=== PATIENT | male | born 1945 | race Caucasian/White ===

== ENCOUNTER 2016-09-03 20:53 | Inpatient (IN) | payer BC, MEDICARE ==
[~2016-09-03] VITALS: Ht 170.2 cm; Wt 47.5 kg
[2016-09-03] MEDS: DOXYCYCLINE 100 MG in DEXTROSE 5% 250 ML IV SCH (00:30)
[2016-09-03] MEDS: CEFTRIAXONE PMX 1GM/50ML 50 ML IV SCH (06:00)
[~2016-09-03 20:53] MED LIST: ALBU0.63 NEB; ALPR0.254 PO; AMIO200T42 PO; CALC200T3 PO; ENOX30DI3 SQ; FAMO20TA37 PO; GI COCKTAIL PO; HYDR-3138 PO; IPRA3AMP INLINE; MAG355OR14 PO; NICO1PAT4 TD; NYST1000 PO; PANT40TA5 PO; PRED20TA PO; PRED5POW3 PO; TAMS-11 PO; THEO100C PO; WARF5TAB PO
[2016-09-03] MEDS ORDERED: methylPREDNISolone SOD SUCC 125 MG/2 ML ONE (21:15)
[2016-09-03 21:29] LABS: BLOOD UREA NITROGEN 19 mg/dL (7-18)
[2016-09-03] MEDS ORDERED: MAGNESIUM SULFATE PMX 2GM/50ML 50 ML IV ONE (21:30)
[2016-09-03] MEDS ORDERED: methylPREDNISolone SOD SUCC 125 MG/2 ML IVP ONE (21:30)
[2016-09-03] MEDS ORDERED: SODIUM CHLORIDE 0.9% 1,000ML IVBOLUS ONE (21:30)
[2016-09-03] MEDS ORDERED: ALBUTEROL/IPRATROPIUM 2.5MG/0.5MG, 3 ML NEB ONE (21:30)
[2016-09-03] MEDS ORDERED: PLEASE ENTER HEIGHT AND WEIGHT MC SCH (21:30)
[2016-09-03] MEDS ORDERED: SODIUM CHLORIDE FLUSH 10ML SYR IVF ONE (21:30)
[2016-09-03 21:38] LABS: IS PT STATUS REG ER OR PRE ER? YES
[2016-09-03] MEDS ORDERED: ALBU8.5H3 INH (21:44)
[2016-09-03] MEDS ORDERED: BUSP10TA PO (21:44)
[2016-09-03] MEDS ORDERED: ALBU1.25 NEB (21:44)
[2016-09-03] MEDS ORDERED: IPRA0.2S35 INH (21:44)
[2016-09-03] MEDS ORDERED: DABI150C PO (21:44)
[2016-09-03] MEDS ORDERED: ALBUTEROL SULFATE 2.5 MG/3 ML NPPB ONE (22:00)
[2016-09-03 22:09] LABS: ABG COLLECTION SITE RIGHT RADIAL; COLLATERAL CIRCULATION TESTING NORMAL
[2016-09-03] MEDS ORDERED: LORazepam 2 MG/ML, 1ML ONE (22:10)
[2016-09-03] MEDS ORDERED: LORazepam 2 MG/ML, 1ML IVPush ONE (22:30)
[2016-09-03] MEDS ORDERED: SODIUM CHLORIDE 0.9% 1,000 ML IV ONE (23:00)
[2016-09-03] MEDS ORDERED: ENOXAPARIN 40 MG/0.4 ML SQ SCH (23:30)
[2016-09-03] MEDS ORDERED: BISACODYL 10 MG SUPP PR PRN (23:30)
[2016-09-03] MEDS ORDERED: LORazepam 2 MG/ML, 1ML IVPush PRN (23:30)
[2016-09-03] MEDS ORDERED: ONDANSETRON 2MG/ML, 2ML IVPush PRN (23:30)
[2016-09-03] MEDS ORDERED: POLYETHYLENE GLYCOL 17 GM PACKET PO PRN (23:30)
[2016-09-03] MEDS ORDERED: GUAIFENESIN/DM 200-20MG, 10ML UDC PO PRN (23:30)
[2016-09-03] MEDS ORDERED: DOCUSATE 100 MG CAPSULE PO PRN (23:30)
[2016-09-04] VITALS: BP 116/64
[2016-09-04 02:13] VITALS: BP 129/59
[2016-09-04 02:34] LABS: ABG COLLECTION SITE LEFT RADIAL; COLLATERAL CIRCULATION TESTING NORMAL
[2016-09-04] MEDS: DABIGATRAN 150 MG CAPSULE PO SCH ×3 (03:11→20:30)
[2016-09-04] MEDS: NICOTINE 7 MG/24 HR PATCH.TD24 TD SCH ×2 (03:12→22:00)
[2016-09-04] MEDS: methylPREDNISolone SOD SUCC 125 MG/2 ML IVPush SCH ×4 (03:19→20:30)
[2016-09-04 05:24] LABS: ABG COLLECTION SITE RIGHT RADIAL; COLLATERAL CIRCULATION TESTING NORMAL
[2016-09-04 05:53] LABS: ASPARTATE AMINO TRANSFERASE 30 U/L (15-37); BLOOD UREA NITROGEN 15 mg/dL (7-18); TOTAL IRON BINDING CAPACITY 597 mcg/dL (250-450)
[2016-09-04] MEDS ORDERED: ALBUTEROL/IPRATROPIUM 2.5MG/0.5MG, 3 ML NPPB SCH (07:00)
[2016-09-04 08:18] VITALS: BP 124/64
[2016-09-04] MEDS: FLUTICASONE/VILANTEROL 200-25MCG/INH INH SCH (09:00)
[2016-09-04] MEDS: SODIUM CHLORIDE FLUSH 3ML SYRINGE IVF SCH ×2 (09:00→20:30)
[2016-09-04] MEDS: BUSPIRONE 10 MG TABLET PO SCH ×3 (10:35→20:30)
[2016-09-04] MEDS: morphine SULFATE 10 MG/ML, 1ML IVPush PRN (10:40)
[2016-09-04 11:04] LABS: IS PT STATUS REG ER OR PRE ER? NO
[2016-09-04] MEDS: ALBUTEROL/IPRATROPIUM 2.5MG/0.5MG, 3 ML NPPB SCH ×4 (11:20→23:28)
[2016-09-04 11:50] VITALS: BP 102/57
[2016-09-04] MEDS: DOXYCYCLINE 100 MG in DEXTROSE 5% 250 ML IV SCH (13:13)
[2016-09-04] MEDS: SODIUM CHLORIDE 0.9% 1,000 ML IV SCH (15:36)
[2016-09-04] MEDS: CEFTRIAXONE PMX 1GM/50ML 50 ML IV SCH (23:16)
[2016-09-05] MEDS: DOXYCYCLINE 100 MG in DEXTROSE 5% 250 ML IV SCH ×2 (00:05→13:43)
[2016-09-05] MEDS: ALBUTEROL/IPRATROPIUM 2.5MG/0.5MG, 3 ML NPPB SCH ×6 (02:56→23:52)
[2016-09-05] MEDS: methylPREDNISolone SOD SUCC 125 MG/2 ML IVPush SCH ×4 (02:57→21:22)
[2016-09-05] MEDS: SODIUM CHLORIDE 0.9% 1,000 ML IV SCH ×2 (02:57→11:26)
[2016-09-05 04:00] VITALS: BP 110/62
[2016-09-05 04:25] LABS: BLOOD UREA NITROGEN 18 mg/dL (7-18)
[2016-09-05 07:47] LABS: ABG COLLECTION SITE RIGHT RADIAL
[2016-09-05 07:48] LABS: COLLATERAL CIRCULATION TESTING NORMAL
[2016-09-05] MEDS: FLUTICASONE/VILANTEROL 200-25MCG/INH INH SCH (09:00)
[2016-09-05] MEDS: SODIUM CHLORIDE FLUSH 3ML SYRINGE IVF SCH ×2 (09:00→21:35)
[2016-09-05] MEDS: DABIGATRAN 150 MG CAPSULE PO SCH ×2 (11:25→20:38)
[2016-09-05] MEDS: BUSPIRONE 10 MG TABLET PO SCH ×3 (11:25→20:36)
[2016-09-05] MEDS: NICOTINE 7 MG/24 HR PATCH.TD24 TD SCH (23:00)
[2016-09-05] MEDS: CEFTRIAXONE PMX 1GM/50ML 50 ML IV SCH (23:00)
[2016-09-06] MEDS: DOXYCYCLINE 100 MG in DEXTROSE 5% 250 ML IV SCH ×2 (00:20→10:48)
[2016-09-06] MEDS: SODIUM CHLORIDE 0.9% 1,000 ML IV SCH ×2 (02:53→17:36)
[2016-09-06] MEDS: methylPREDNISolone SOD SUCC 125 MG/2 ML IVPush SCH ×4 (03:46→22:24)
[2016-09-06 04:00] VITALS: BP 124/70
[2016-09-06 04:36] LABS: BLOOD UREA NITROGEN 25 mg/dL (7-18)
[2016-09-06 04:39] LABS: ASPARTATE AMINO TRANSFERASE 22 U/L (15-37)
[2016-09-06] MEDS: morphine SULFATE 10 MG/ML, 1ML IVPush PRN ×2 (05:54→06:39)
[2016-09-06] MEDS: ALBUTEROL/IPRATROPIUM 2.5MG/0.5MG, 3 ML NPPB SCH ×3 (06:40→18:40)
[2016-09-06] MEDS: BUSPIRONE 10 MG TABLET PO SCH ×3 (08:04→22:24)
[2016-09-06] MEDS: DABIGATRAN 150 MG CAPSULE PO SCH ×2 (08:04→21:00)
[2016-09-06] MEDS: SODIUM CHLORIDE FLUSH 3ML SYRINGE IVF SCH ×2 (08:05→22:24)
[2016-09-06] MEDS ORDERED: MIDAZOLAM 1 MG/ML, 5ML ONE (09:00)
[2016-09-06] MEDS: FLUTICASONE/VILANTEROL 200-25MCG/INH INH SCH (09:00)
[2016-09-06] MEDS ORDERED: ETOMIDATE 20 MG/10 ML ONE (09:00)
[2016-09-06] MEDS ORDERED: MIDAZOLAM 1 MG/ML, 5ML IVPush ONE (09:30)
[2016-09-06] MEDS ORDERED: ETOMIDATE 20 MG/10 ML IVPush ONE ×2 (09:30→10:00)
[2016-09-06] MEDS ORDERED: MIDAZOLAM 1 MG/ML, 2ML IVPush PRN (10:00)
[2016-09-06] MEDS ORDERED: FENTANYL PF 100 MCG/2ML IVPush PRN (10:00)
[2016-09-06] MEDS ORDERED: DEXTROSE 50%, 50ML SYRINGE IVPush PRN (10:00)
[2016-09-06] MEDS ORDERED: GLUCAGON 1 MG IM PRN (10:00)
[2016-09-06] MEDS ORDERED: PHARMACY MAY ADJ FOR RENAL FX MC SCH (10:00)
[2016-09-06] MEDS ORDERED: LIDOCAINE-MPF 1%, 2ML ENDO PRN (10:00)
[2016-09-06] MEDS: ALBUTEROL/IPRATROPIUM 2.5MG/0.5MG, 3 ML INLINE SCH ×4 (10:14→22:10)
[2016-09-06] MEDS: PROPOFOL 100 ML IV PRN ×2 (10:47→23:30)
[2016-09-06 11:30] LABS: ABG COLLECTION SITE RIGHT RADIAL; COLLATERAL CIRCULATION TESTING NORMAL
[2016-09-06] MEDS: RISPERIDONE 1 MG TABLET NG PRN (15:24)
[2016-09-06] MEDS: NICOTINE 7 MG/24 HR PATCH.TD24 TD SCH (23:23)
[2016-09-06] MEDS: CEFTRIAXONE PMX 1GM/50ML 50 ML IV SCH (23:23)
[2016-09-07] MEDS: DOXYCYCLINE 100 MG in DEXTROSE 5% 250 ML IV SCH ×3 (01:04→23:54)
[2016-09-07] MEDS: ALBUTEROL/IPRATROPIUM 2.5MG/0.5MG, 3 ML INLINE SCH ×6 (02:05→22:15)
[2016-09-07 04:00] VITALS: BP 140/75
[2016-09-07 04:29] LABS: ABG COLLECTION SITE RIGHT RADIAL; COLLATERAL CIRCULATION TESTING NORMAL
[2016-09-07 04:41] LABS: BLOOD UREA NITROGEN 28 mg/dL (7-18)
[2016-09-07] MEDS: methylPREDNISolone SOD SUCC 125 MG/2 ML IVPush SCH ×4 (04:43→21:56)
[2016-09-07] MEDS: HYDROcodone/APAP 5/325 TABLET PO PRN ×2 (04:47→19:43)
[2016-09-07] MEDS: FLUTICASONE/VILANTEROL 200-25MCG/INH INH SCH (09:00)
[2016-09-07] MEDS: DABIGATRAN 150 MG CAPSULE PO SCH ×2 (09:11→20:52)
[2016-09-07] MEDS: BUSPIRONE 10 MG TABLET PO SCH ×3 (09:12→21:00)
[2016-09-07] MEDS: SODIUM CHLORIDE FLUSH 3ML SYRINGE IVF SCH ×2 (09:12→21:00)
[2016-09-07] MEDS: SODIUM CHLORIDE 0.9% 1,000 ML IV SCH ×2 (09:16→23:09)
[2016-09-07] MEDS ORDERED: PHENOL THROAT SPRAY BOTTLE MM PRN (10:00)
[2016-09-07] MEDS: FAMOTIDINE 20 MG/2 ML IVPush SCH ×2 (10:21→21:00)
[2016-09-07] MEDS: ACETAMINOPHEN 325 MG TABLET PO PRN (14:15)
[2016-09-07] MEDS: RISPERIDONE 1 MG TABLET NG PRN (21:01)
[2016-09-07] MEDS: NICOTINE 7 MG/24 HR PATCH.TD24 TD SCH (23:09)
[2016-09-07] MEDS: CEFTRIAXONE PMX 1GM/50ML 50 ML IV SCH (23:09)
[2016-09-08] MEDS: ALBUTEROL/IPRATROPIUM 2.5MG/0.5MG, 3 ML INLINE SCH ×6 (01:50→22:20)
[2016-09-08] MEDS: methylPREDNISolone SOD SUCC 125 MG/2 ML IVPush SCH ×4 (03:43→21:25)
[2016-09-08 04:01] VITALS: BP 133/56
[2016-09-08 04:23] LABS: ABG COLLECTION SITE LEFT RADIAL; COLLATERAL CIRCULATION TESTING NORMAL
[2016-09-08 04:31] LABS: BLOOD UREA NITROGEN 25 mg/dL (7-18)
[2016-09-08] MEDS: DABIGATRAN 150 MG CAPSULE PO SCH ×2 (09:32→21:00)
[2016-09-08] MEDS: SODIUM CHLORIDE FLUSH 3ML SYRINGE IVF SCH ×2 (09:33→21:25)
[2016-09-08] MEDS: FAMOTIDINE 20 MG/2 ML IVPush SCH ×2 (09:33→21:25)
[2016-09-08] MEDS: BUSPIRONE 10 MG TABLET PO SCH ×3 (09:33→21:25)
[2016-09-08] MEDS: FLUTICASONE/VILANTEROL 200-25MCG/INH INH SCH (09:33)
[2016-09-08] MEDS: DOXYCYCLINE 100 MG in DEXTROSE 5% 250 ML IV SCH (12:17)
[2016-09-08] MEDS: PROPOFOL 100 ML IV PRN (15:47)
[2016-09-08] MEDS: FUROSEMIDE 20 MG/2 ML IV SCH (17:23)
[2016-09-08] MEDS: RISPERIDONE 1 MG TABLET NG PRN (21:25)
[2016-09-08] MEDS: SODIUM CHLORIDE 0.9% 1,000 ML IV SCH (21:26)
[2016-09-08] MEDS: HYDROcodone/APAP 5/325 TABLET PO PRN (21:32)
[2016-09-08] MEDS: CEFTRIAXONE PMX 1GM/50ML 50 ML IV SCH (23:12)
[2016-09-08] MEDS: NICOTINE 7 MG/24 HR PATCH.TD24 TD SCH (23:12)
[2016-09-09] VITALS (8 sets, daily range): BP systolic 91–133; BP diastolic 53–84
[2016-09-09] MEDS: DOXYCYCLINE 100 MG in DEXTROSE 5% 250 ML IV SCH ×2 (00:11→12:23)
[2016-09-09] MEDS: PROPOFOL 100 ML IV PRN (02:22)
[2016-09-09] MEDS: ALBUTEROL/IPRATROPIUM 2.5MG/0.5MG, 3 ML INLINE SCH ×6 (02:29→21:51)
[2016-09-09] MEDS: SODIUM CHLORIDE 0.9% 1,000 ML IV SCH (04:18)
[2016-09-09] MEDS: methylPREDNISolone SOD SUCC 125 MG/2 ML IVPush SCH ×4 (04:19→22:59)
[2016-09-09 04:41] LABS: ABG COLLECTION SITE RIGHT RADIAL; COLLATERAL CIRCULATION TESTING NORMAL
[2016-09-09 04:45] LABS: BLOOD UREA NITROGEN 22 mg/dL (7-18)
[2016-09-09] MEDS: FLUTICASONE/VILANTEROL 200-25MCG/INH INH SCH (08:50)
[2016-09-09] MEDS: SODIUM CHLORIDE FLUSH 3ML SYRINGE IVF SCH ×2 (09:00→21:13)
[2016-09-09] MEDS: FUROSEMIDE 20 MG/2 ML IV SCH ×2 (09:00→16:47)
[2016-09-09] MEDS: POTASSIUM CHLORIDE 20 MEQ PACKET NG SCH ×2 (09:01→21:12)
[2016-09-09] MEDS: FAMOTIDINE 20 MG/2 ML IVPush SCH ×2 (09:16→21:12)
[2016-09-09] MEDS: BUSPIRONE 10 MG TABLET PO SCH ×3 (09:16→21:12)
[2016-09-09] MEDS: HYDROcodone/APAP 5/325 TABLET PO PRN (21:12)
[2016-09-09] MEDS: CEFTRIAXONE PMX 1GM/50ML 50 ML IV SCH (22:59)
[2016-09-10] MEDS: NICOTINE 7 MG/24 HR PATCH.TD24 TD SCH ×2 (00:40→23:12)
[2016-09-10] MEDS: DOXYCYCLINE 100 MG in DEXTROSE 5% 250 ML IV SCH ×2 (00:41→12:44)
[2016-09-10] MEDS: ALBUTEROL/IPRATROPIUM 2.5MG/0.5MG, 3 ML INLINE SCH ×2 (02:12→06:00)
[2016-09-10 04:00] VITALS: BP 98/53
[2016-09-10 04:44] LABS: ABG COLLECTION SITE RIGHT RADIAL; COLLATERAL CIRCULATION TESTING NORMAL
[2016-09-10 04:52] LABS: ASPARTATE AMINO TRANSFERASE 28 U/L (15-37); BLOOD UREA NITROGEN 28 mg/dL (7-18)
[2016-09-10] MEDS: methylPREDNISolone SOD SUCC 125 MG/2 ML IVPush SCH ×4 (05:37→23:11)
[2016-09-10] MEDS: SODIUM CHLORIDE 0.9% 1,000 ML IV SCH (05:38)
[2016-09-10] MEDS ORDERED: MAGNESIUM SULFATE PMX 2GM/50ML 50 ML IV ONE (07:00)
[2016-09-10] MEDS: FAMOTIDINE 20 MG/2 ML IVPush SCH ×2 (07:47→20:59)
[2016-09-10] MEDS: POTASSIUM CHLORIDE 20 MEQ PACKET NG SCH ×2 (07:47→20:59)
[2016-09-10] MEDS: SODIUM CHLORIDE FLUSH 3ML SYRINGE IVF SCH ×2 (07:47→20:59)
[2016-09-10] MEDS: BUSPIRONE 10 MG TABLET PO SCH ×3 (07:47→20:59)
[2016-09-10] MEDS: FUROSEMIDE 20 MG/2 ML IV SCH ×2 (07:47→17:05)
[2016-09-10] MEDS: FLUTICASONE/VILANTEROL 200-25MCG/INH INH SCH (08:55)
[2016-09-10] MEDS: INSULIN ASPART 100 UNITS/ML, 3ML PEN MEDIUM DOSE SS SQ-INSULIN SCH ×3 (09:50→20:59)
[2016-09-10 09:51] LABS: ABG COLLECTION SITE RIGHT RADIAL; COLLATERAL CIRCULATION TESTING NORMAL
[2016-09-10] MEDS ORDERED: ALBUTEROL/IPRATROPIUM 2.5MG/0.5MG, 3 ML NPPB PRN (10:00)
[2016-09-10] MEDS: ALBUTEROL/IPRATROPIUM 2.5MG/0.5MG, 3 ML NPPB SCH ×4 (10:00→22:30)
[2016-09-10] MEDS: CEFTRIAXONE PMX 1GM/50ML 50 ML IV SCH (23:12)
[2016-09-11] MEDS: DOXYCYCLINE 100 MG in DEXTROSE 5% 250 ML IV SCH ×2 (00:46→12:57)
[2016-09-11] MEDS: ALBUTEROL/IPRATROPIUM 2.5MG/0.5MG, 3 ML NPPB SCH ×6 (01:49→22:11)
[2016-09-11 04:00] VITALS: BP 150/72
[2016-09-11 04:25] LABS: ABG COLLECTION SITE RIGHT RADIAL; COLLATERAL CIRCULATION TESTING NORMAL
[2016-09-11] MEDS: methylPREDNISolone SOD SUCC 125 MG/2 ML IVPush SCH ×4 (04:32→22:17)
[2016-09-11 04:36] LABS: BLOOD UREA NITROGEN 28 mg/dL (7-18)
[2016-09-11] MEDS: FUROSEMIDE 20 MG/2 ML IV SCH ×2 (07:36→16:05)
[2016-09-11] MEDS: INSULIN ASPART 100 UNITS/ML, PEN SQ-INSULIN SCH ×4 (07:36→20:38)
[2016-09-11] MEDS: POTASSIUM CHLORIDE 20 MEQ PACKET NG SCH ×2 (07:36→20:38)
[2016-09-11] MEDS: BUSPIRONE 10 MG TABLET PO SCH ×3 (07:37→20:38)
[2016-09-11] MEDS: SODIUM CHLORIDE FLUSH 3ML SYRINGE IVF SCH ×2 (07:37→20:38)
[2016-09-11] MEDS: FLUTICASONE/VILANTEROL 200-25MCG/INH INH SCH (07:37)
[2016-09-11] MEDS: FAMOTIDINE 20 MG/2 ML IVPush SCH ×2 (07:37→20:38)
[2016-09-11] MEDS: DABIGATRAN 150 MG CAPSULE PO SCH ×2 (09:22→20:38)
[2016-09-11] MEDS: HYDROcodone/APAP 5/325 TABLET PO PRN (20:38)
[2016-09-11] MEDS: CEFTRIAXONE 1,000 MG in SODIUM CHLORIDE 0.9% 50 ML IVPB SCH (23:20)
[2016-09-11] MEDS: NICOTINE 7 MG/24 HR PATCH.TD24 TD SCH (23:20)
[2016-09-11] MEDS ORDERED: TAMSULOSIN 0.4 MG CAP.ER.24H PO ONE (23:30)
[2016-09-12] MEDS: DOXYCYCLINE 100 MG in DEXTROSE 5% 250 ML IV SCH ×2 (00:40→12:33)
[2016-09-12] MEDS: ALBUTEROL/IPRATROPIUM 2.5MG/0.5MG, 3 ML NPPB SCH ×6 (02:03→22:06)
[2016-09-12 04:00] VITALS: BP 129/65
[2016-09-12] MEDS: methylPREDNISolone SOD SUCC 125 MG/2 ML IVPush SCH ×4 (04:04→20:51)
[2016-09-12 04:44] LABS: ABG COLLECTION SITE RIGHT RADIAL; COLLATERAL CIRCULATION TESTING NORMAL
[2016-09-12 06:58] LABS: BLOOD UREA NITROGEN 29 mg/dL (7-18)
[2016-09-12] MEDS: INSULIN ASPART 100 UNITS/ML, PEN SQ-INSULIN SCH ×4 (07:29→20:50)
[2016-09-12] MEDS: FUROSEMIDE 20 MG/2 ML IV SCH ×2 (08:04→17:20)
[2016-09-12] MEDS: PAROXETINE 20 MG TABLET PO SCH (09:10)
[2016-09-12] MEDS: BUSPIRONE 10 MG TABLET PO SCH ×3 (09:10→22:17)
[2016-09-12] MEDS: DABIGATRAN 150 MG CAPSULE PO SCH ×2 (09:11→20:51)
[2016-09-12] MEDS: CALCIUM CARBONATE 500 MG TAB.CHEW PO PRN (09:11)
[2016-09-12] MEDS: TAMSULOSIN 0.4 MG CAP.ER.24H PO SCH (09:11)
[2016-09-12] MEDS: FLUTICASONE/VILANTEROL 200-25MCG/INH INH SCH (09:11)
[2016-09-12] MEDS: POTASSIUM CHLORIDE 20 MEQ PACKET NG SCH ×2 (09:11→20:50)
[2016-09-12] MEDS: FAMOTIDINE 20 MG/2 ML IVPush SCH (09:11)
[2016-09-12] MEDS: SODIUM CHLORIDE FLUSH 3ML SYRINGE IVF SCH ×2 (09:12→20:47)
[2016-09-12] MEDS: FERROUS SULFATE 325 MG TABLET PO SCH ×2 (13:00→17:20)
[2016-09-12] MEDS ORDERED: MAALOX/HYOSCYAMINE/LIDOCAINE 45 ML BOTTLE PO ONE (16:30)
[2016-09-12] MEDS: OMEPRAZOLE 20 MG CAPSULE.DR PO SCH (20:50)
[2016-09-12] MEDS: morphine SULFATE 10 MG/ML, 1ML IVPush PRN (20:57)
[2016-09-12] MEDS: CEFTRIAXONE 1,000 MG in SODIUM CHLORIDE 0.9% 50 ML IVPB SCH (23:53)
[2016-09-12] MEDS: NICOTINE 7 MG/24 HR PATCH.TD24 TD SCH (23:56)
[2016-09-13] MEDS: DOXYCYCLINE 100 MG in DEXTROSE 5% 250 ML IV SCH ×2 (00:55→14:04)
[2016-09-13] MEDS: ALBUTEROL/IPRATROPIUM 2.5MG/0.5MG, 3 ML NPPB SCH ×6 (02:03→22:15)
[2016-09-13 03:32] LABS: BLOOD UREA NITROGEN 36 mg/dL (7-18)
[2016-09-13] MEDS: methylPREDNISolone SOD SUCC 125 MG/2 ML IVPush SCH ×4 (05:06→22:03)
[2016-09-13] MEDS: INSULIN ASPART 100 UNITS/ML, PEN SQ-INSULIN SCH ×4 (08:17→19:51)
[2016-09-13] MEDS: FUROSEMIDE 20 MG/2 ML IV SCH ×2 (08:18→18:57)
[2016-09-13] MEDS: POTASSIUM CHLORIDE 20 MEQ PACKET NG SCH ×2 (08:19→20:18)
[2016-09-13] MEDS: TAMSULOSIN 0.4 MG CAP.ER.24H PO SCH (08:19)
[2016-09-13] MEDS: PAROXETINE 20 MG TABLET PO SCH (08:19)
[2016-09-13] MEDS: FERROUS SULFATE 325 MG TABLET PO SCH ×2 (08:19→18:56)
[2016-09-13] MEDS: OMEPRAZOLE 20 MG CAPSULE.DR PO SCH ×2 (08:19→20:19)
[2016-09-13] MEDS: SODIUM CHLORIDE FLUSH 3ML SYRINGE IVF SCH ×2 (08:19→20:18)
[2016-09-13] MEDS: DABIGATRAN 150 MG CAPSULE PO SCH ×2 (08:19→20:18)
[2016-09-13] MEDS: BUSPIRONE 10 MG TABLET PO SCH ×3 (08:19→20:19)
[2016-09-13] MEDS: FLUTICASONE/VILANTEROL 200-25MCG/INH INH SCH (08:24)
[2016-09-13 11:20] VITALS: BP 138/66
[2016-09-13 20:01] VITALS: BP 136/80
[2016-09-13] MEDS: CALCIUM CARBONATE 500 MG TAB.CHEW PO PRN (22:02)
[2016-09-13] MEDS: NICOTINE 7 MG/24 HR PATCH.TD24 TD SCH (22:02)
[2016-09-13] MEDS: CEFTRIAXONE 1,000 MG in SODIUM CHLORIDE 0.9% 50 ML IVPB SCH (22:02)
[2016-09-14] MEDS: DOXYCYCLINE 100 MG in DEXTROSE 5% 250 ML IV SCH ×2 (00:21→11:49)
[2016-09-14 00:50] VITALS: BP 131/69
[2016-09-14] MEDS: ALBUTEROL/IPRATROPIUM 2.5MG/0.5MG, 3 ML NPPB SCH ×5 (02:00→22:55)
[2016-09-14] MEDS: methylPREDNISolone SOD SUCC 125 MG/2 ML IVPush SCH ×4 (04:05→21:19)
[2016-09-14 05:20] LABS: BLOOD UREA NITROGEN 32 mg/dL (7-18)
[2016-09-14] MEDS: CALCIUM CARBONATE 500 MG TAB.CHEW PO PRN ×2 (06:03→21:37)
[2016-09-14] MEDS: FUROSEMIDE 20 MG/2 ML IV SCH ×2 (07:31→17:09)
[2016-09-14] MEDS: INSULIN ASPART 100 UNITS/ML, PEN SQ-INSULIN SCH ×4 (07:36→21:20)
[2016-09-14] MEDS: FLUTICASONE/VILANTEROL 200-25MCG/INH INH SCH (07:39)
[2016-09-14] MEDS: TAMSULOSIN 0.4 MG CAP.ER.24H PO SCH (07:40)
[2016-09-14] MEDS: OMEPRAZOLE 20 MG CAPSULE.DR PO SCH ×2 (07:40→21:19)
[2016-09-14] MEDS: PAROXETINE 20 MG TABLET PO SCH (07:41)
[2016-09-14] MEDS: POTASSIUM CHLORIDE 20 MEQ PACKET NG SCH ×2 (07:41→21:19)
[2016-09-14] MEDS: BUSPIRONE 10 MG TABLET PO SCH ×3 (07:41→21:19)
[2016-09-14] MEDS: FERROUS SULFATE 325 MG TABLET PO SCH ×2 (07:41→17:08)
[2016-09-14] MEDS: SODIUM CHLORIDE FLUSH 3ML SYRINGE IVF SCH ×2 (07:46→21:26)
[2016-09-14 08:22] VITALS: BP 127/62
[2016-09-14] MEDS: DABIGATRAN 150 MG CAPSULE PO SCH ×2 (09:51→21:19)
[2016-09-14 20:49] VITALS: BP 147/64
[2016-09-14] MEDS ORDERED: TEMAZEPAM 15 MG CAPSULE PO PRN (21:30)
[2016-09-14] MEDS: CEFTRIAXONE 1,000 MG in SODIUM CHLORIDE 0.9% 50 ML IVPB SCH (23:30)
[2016-09-14] MEDS: NICOTINE 7 MG/24 HR PATCH.TD24 TD SCH (23:30)
[2016-09-15] MEDS: DOXYCYCLINE 100 MG in DEXTROSE 5% 250 ML IV SCH ×2 (00:13→13:25)
[2016-09-15 02:47] VITALS: BP 138/62
[2016-09-15] MEDS: methylPREDNISolone SOD SUCC 125 MG/2 ML IVPush SCH ×3 (03:40→16:01)
[2016-09-15 04:39] LABS: BLOOD UREA NITROGEN 30 mg/dL (7-18)
[2016-09-15] MEDS: ALBUTEROL/IPRATROPIUM 2.5MG/0.5MG, 3 ML NPPB SCH ×5 (06:00→23:20)
[2016-09-15] MEDS: INSULIN ASPART 100 UNITS/ML, PEN SQ-INSULIN SCH ×4 (07:48→21:00)
[2016-09-15] MEDS: FLUTICASONE/VILANTEROL 200-25MCG/INH INH SCH (07:49)
[2016-09-15] MEDS: PAROXETINE 20 MG TABLET PO SCH (07:49)
[2016-09-15] MEDS: DABIGATRAN 150 MG CAPSULE PO SCH ×2 (07:49→20:44)
[2016-09-15] MEDS: OMEPRAZOLE 20 MG CAPSULE.DR PO SCH ×2 (07:49→20:44)
[2016-09-15] MEDS: ACETAMINOPHEN 325 MG TABLET PO PRN (07:49)
[2016-09-15] MEDS: BUSPIRONE 10 MG TABLET PO SCH ×3 (07:49→20:44)
[2016-09-15] MEDS: TAMSULOSIN 0.4 MG CAP.ER.24H PO SCH (07:49)
[2016-09-15] MEDS: FERROUS SULFATE 325 MG TABLET PO SCH ×2 (07:49→17:12)
[2016-09-15] MEDS: POTASSIUM CHLORIDE 20 MEQ PACKET NG SCH ×2 (07:49→20:46)
[2016-09-15] MEDS: FUROSEMIDE 20 MG/2 ML IV SCH ×2 (07:49→17:12)
[2016-09-15] MEDS: SODIUM CHLORIDE FLUSH 3ML SYRINGE IVF SCH ×2 (07:50→20:46)
[2016-09-15 08:14] VITALS: BP 101/49
[2016-09-15] MEDS ORDERED: NICOTINE 14MG/24 HR PATCH.TD24 TD SCH (12:30)
[2016-09-15 15:27] VITALS: BP 122/66
[2016-09-15 19:18] VITALS: BP 126/70
[2016-09-16] MEDS: CEFTRIAXONE 1,000 MG in SODIUM CHLORIDE 0.9% 50 ML IVPB SCH (00:03)
[2016-09-16] MEDS: methylPREDNISolone SOD SUCC 125 MG/2 ML IVPush SCH ×2 (00:04→04:16)
[2016-09-16] MEDS: DOXYCYCLINE 100 MG in DEXTROSE 5% 250 ML IV SCH (00:49)
[2016-09-16 01:40] VITALS: BP 131/67
[2016-09-16] MEDS: ALBUTEROL/IPRATROPIUM 2.5MG/0.5MG, 3 ML NPPB SCH ×2 (02:35→06:00)
[2016-09-16 04:37] LABS: BLOOD UREA NITROGEN 30 mg/dL (7-18)
[2016-09-16] MEDS: ACETAMINOPHEN 325 MG TABLET PO PRN (04:58)
[2016-09-16 06:43] VITALS: BP 134/68
[2016-09-16] MEDS: INSULIN ASPART 100 UNITS/ML, PEN SQ-INSULIN SCH (07:00)
[2016-09-16] MEDS ORDERED: INSU100I18 SQ-INSULIN (07:37)
[2016-09-16] MEDS ORDERED: HYDR-3240 PO (07:37)
[2016-09-16] MEDS ORDERED: FLUT1BLS INH (07:37)
[2016-09-16] MEDS ORDERED: PARO20TA4 PO (07:37)
[2016-09-16] MEDS ORDERED: ACET325T14 PO (07:37)
[2016-09-16] MEDS ORDERED: NICO1PAT4 TD (07:37)
[2016-09-16] MEDS ORDERED: METH125V16 IVPush (07:37)
[2016-09-16] MEDS ORDERED: POTA20PA8 NG (07:37)
[2016-09-16] MEDS ORDERED: BISA10SU65 PR (07:37)
[2016-09-16] MEDS ORDERED: TAMS-11 PO (07:37)
[2016-09-16] MEDS ORDERED: FERR325T20 PO (07:37)
[2016-09-16] MEDS ORDERED: FURO10VI37 IV (07:37)
[2016-09-16] MEDS: DABIGATRAN 150 MG CAPSULE PO SCH (08:02)
[2016-09-16] MEDS: BUSPIRONE 10 MG TABLET PO SCH (08:03)
[2016-09-16] MEDS: OMEPRAZOLE 20 MG CAPSULE.DR PO SCH (08:03)
[2016-09-16] MEDS: FERROUS SULFATE 325 MG TABLET PO SCH (08:03)
[2016-09-16] MEDS: FUROSEMIDE 20 MG/2 ML IV SCH (08:03)
[2016-09-16] MEDS: PAROXETINE 20 MG TABLET PO SCH (08:03)
[2016-09-16] MEDS: TAMSULOSIN 0.4 MG CAP.ER.24H PO SCH (08:03)
[2016-09-16] MEDS: POTASSIUM CHLORIDE 20 MEQ PACKET NG SCH (08:04)
[2016-09-16] MEDS: FLUTICASONE/VILANTEROL 200-25MCG/INH INH SCH (08:04)
[2016-09-16] MEDS: SODIUM CHLORIDE FLUSH 3ML SYRINGE IVF SCH (08:05)
== END 2016-09-16 09:39 | DRG 208 ==
LOC: ED 21:04 → EDIP 22:58 → SUATTDRO 23:11 → 4EST 09-04 00:05 → CCU 09-04 10:20 → ICU 09-04 19:00 → CCU 09-06 02:41 → 3NW 09-13 11:07
PROC: 5A09457 Assistance with Respiratory Ventilation, 24-96 Consecutive Hours, Continuous Positive Airway Pressure (ICD-10-PCS; 2016-09-04)
PROC: 5A1945Z Respiratory Ventilation, 24-96 Consecutive Hours (ICD-10-PCS; principal; 2016-09-06)
PROC: 0BH17EZ Insertion of Endotracheal Airway into Trachea, Via Natural or Artificial Opening (ICD-10-PCS; 2016-09-07)
PROC: 30233N1 Transfusion of Nonautologous Red Blood Cells into Peripheral Vein, Percutaneous Approach (ICD-10-PCS; 2016-09-09)
PROC: 5A09557 Assistance with Respiratory Ventilation, Greater than 96 Consecutive Hours, Continuous Positive Airway Pressure (ICD-10-PCS; 2016-09-10)
DX: J96.22 Acute and chronic respiratory failure with hypercapnia (principal); E43 Unspecified severe protein-calorie malnutrition; J18.1 Lobar pneumonia, unspecified organism; E87.2 Acidosis; J44.1 Chronic obstructive pulmonary disease with (acute) exacerbation; D68.59 Other primary thrombophilia; J44.0 Chronic obstructive pulmonary disease with (acute) lower respiratory infection; Z68.1 Body mass index [BMI] 19.9 or less, adult; Z99.11 Dependence on respirator [ventilator] status; I25.10 Atherosclerotic heart disease of native coronary artery without angina pectoris; E16.2 Hypoglycemia, unspecified; D50.9 Iron deficiency anemia, unspecified; F17.210 Nicotine dependence, cigarettes, uncomplicated; F32.9 Major depressive disorder, single episode, unspecified; I27.2 Other secondary pulmonary hypertension; I48.91 Unspecified atrial fibrillation; J20.9 Acute bronchitis, unspecified; J84.10 Pulmonary fibrosis, unspecified; J96.21 Acute and chronic respiratory failure with hypoxia; Z79.01 Long term (current) use of anticoagulants; Z95.5 Presence of coronary angioplasty implant and graft; Z99.81 Dependence on supplemental oxygen; I48.2 Chronic atrial fibrillation; E11.65 Type 2 diabetes mellitus with hyperglycemia
CPT/HCPCS: 36415; 36600; 71010; 80048; 80053; 81001; 82040; 82728; 82803; 82962; 83540; 83550; 83735; 84100; 84478; 84484; 85025; 85610; 85730; 86850; 86900; 86923; 87040; 87070; 87081; 87186; 87205; 93005; 94002; 94003; 94640; 94660; 96365; 96366; 96375; J0696; J1650; J1815; J2250; J2405; J2704; J7060; J7613; J7620; J1940; J2060; J2270; J2930; J3475; J7030; P9016; S0028

== ENCOUNTER 2016-10-17 04:46 | Inpatient (IN) | payer MEDICARE, OTHER ==
[~2016-10-17] VITALS: Ht 170.2 cm; Wt 41.4 kg
[~2016-10-17 04:46] MED LIST changes: +ACET325T14 PO; +ALBU1.25 NEB; +ALBU8.5H3 INH; +BISA10SU65 PR; +BUSP10TA PO; +DABI150C PO; +FERR325T20 PO; +FLUT1BLS INH; +FURO10VI37 IV; +HYDR-3240 PO; +INSU100I18 SQ-INSULIN; +IPRA0.2S35 INH; +METH125V16 IVPush; +PARO20TA4 PO; +POTA20PA8 NG
[2016-10-17] MEDS ORDERED: methylPREDNISolone SOD SUCC 125 MG/2 ML ONE ×2 (04:51→09:37)
[2016-10-17] MEDS ORDERED: ALBUTEROL SULFATE 2.5 MG/3 ML ONE (04:53)
[2016-10-17] MEDS ORDERED: methylPREDNISolone SOD SUCC 125 MG/2 ML IVP ONE (05:00)
[2016-10-17] MEDS ORDERED: PRED20TA PO (05:06)
[2016-10-17] MEDS ORDERED: FURO-93 PO (05:06)
[2016-10-17] MEDS ORDERED: MAGNESIUM SULFATE 1 GM in SODIUM CHLORIDE 0.9% 50 ML IV ONE (05:30)
[2016-10-17 05:31] LABS: ASPARTATE AMINO TRANSFERASE 21 U/L (15-37); BLOOD UREA NITROGEN 27 mg/dL (7-18)
[2016-10-17 05:37] LABS: IS PT STATUS REG ER OR PRE ER? YES
[2016-10-17] MEDS: ALBUTEROL SULFATE 2.5 MG/3 ML NPPB SCH (06:08)
[2016-10-17 06:13] LABS: ABG COLLECTION SITE RIGHT RADIAL; COLLATERAL CIRCULATION TESTING NORMAL
[2016-10-17] MEDS ORDERED: POLYETHYLENE GLYCOL 17 GM PACKET PO PRN (09:00)
[2016-10-17] MEDS ORDERED: ACETAMINOPHEN 325 MG TABLET PO PRN (09:00)
[2016-10-17] MEDS ORDERED: LORazepam 1MG TABLET PO PRN (09:00)
[2016-10-17] MEDS ORDERED: ENALAPRILAT 1.25 MG/ML, 2ML IVPush PRN (09:00)
[2016-10-17] MEDS ORDERED: DOCUSATE 100 MG CAPSULE PO PRN (09:00)
[2016-10-17] MEDS ORDERED: GUAIFENESIN/DM 200-20MG, 10ML UDC PO PRN (09:00)
[2016-10-17] MEDS ORDERED: ONDANSETRON 2MG/ML, 2ML IVPush PRN (09:00)
[2016-10-17] MEDS ORDERED: NITROGLYCERIN 0.4 MG/SPRAY SL PRN (09:00)
[2016-10-17] MEDS ORDERED: ONDANSETRON ODT 4 MG PO PRN (09:00)
[2016-10-17] MEDS ORDERED: NICOTINE 7 MG/24 HR PATCH.TD24 TD SCH (09:00)
[2016-10-17] MEDS ORDERED: BISACODYL 10 MG SUPP PR PRN (09:00)
[2016-10-17] MEDS ORDERED: NITROGLYCERIN 0.4 MG BOTTLE (25 TABS) SL PRN (09:00)
[2016-10-17] MEDS ORDERED: IPRATROPIUM 0.5 MG/2.5 ML INHA NEB PRN (09:30)
[2016-10-17 09:37] LABS: IS PT STATUS REG ER OR PRE ER? YES
[2016-10-17] MEDS ORDERED: ALBUTEROL/IPRATROPIUM 2.5MG/0.5MG, 3 ML ONE (10:30)
[2016-10-17] MEDS: ALBUTEROL/IPRATROPIUM 2.5MG/0.5MG, 3 ML NPPB SCH ×4 (10:35→22:15)
[2016-10-17] MEDS ORDERED: NICOTINE 14MG/24 HR PATCH.TD24 ONE (11:02)
[2016-10-17] MEDS: methylPREDNISolone SOD SUCC 125 MG/2 ML IVPush SCH ×2 (11:07→18:00)
[2016-10-17] MEDS: NICOTINE 14MG/24 HR PATCH.TD24 TD SCH (11:07)
[2016-10-17 11:45] VITALS: BP 117/64
[2016-10-17] MEDS: INSULIN ASPART 100 UNITS/ML, PEN SQ-INSULIN SCH ×6 (12:30→19:35)
[2016-10-17] MEDS: FAMOTIDINE 20 MG TABLET PO SCH (12:51)
[2016-10-17] MEDS: BUSPIRONE 10 MG TABLET PO SCH ×2 (15:12→19:32)
[2016-10-17 15:18] LABS: IS PT STATUS REG ER OR PRE ER? NO
[2016-10-17] MEDS: FERROUS SULFATE 325 MG TABLET PO SCH (17:13)
[2016-10-17] MEDS ORDERED: SODIUM CHLORIDE 0.9%, 500ML IVBOLUS ONE (17:30)
[2016-10-17] MEDS: POTASSIUM CHLORIDE 20 MEQ PACKET NG SCH (19:33)
[2016-10-17] MEDS: DABIGATRAN 150 MG CAPSULE PO SCH (19:35)
[2016-10-17] MEDS: LORazepam 2 MG/ML, 1ML IVPush PRN (20:18)
[2016-10-18] MEDS: methylPREDNISolone SOD SUCC 125 MG/2 ML IVPush SCH ×5 (01:00→23:28)
[2016-10-18] MEDS: ALBUTEROL/IPRATROPIUM 2.5MG/0.5MG, 3 ML NPPB SCH ×6 (02:08→22:19)
[2016-10-18 05:01] LABS: BLOOD UREA NITROGEN 20 mg/dL (7-18)
[2016-10-18 05:51] LABS: ANISOCYTOSIS 2+; MICROCYTOSIS 1+; OVALOCYTES 1+
[2016-10-18] MEDS: POTASSIUM CHLORIDE 20 MEQ PACKET NG SCH ×2 (08:09→20:34)
[2016-10-18] MEDS: FERROUS SULFATE 325 MG TABLET PO SCH ×2 (08:09→16:39)
[2016-10-18] MEDS: BUSPIRONE 10 MG TABLET PO SCH ×3 (08:09→20:34)
[2016-10-18] MEDS: FUROSEMIDE 20 MG TABLET PO SCH (08:10)
[2016-10-18] MEDS: PAROXETINE 20 MG TABLET PO SCH (08:10)
[2016-10-18] MEDS: TAMSULOSIN 0.4 MG CAP.ER.24H PO SCH (08:10)
[2016-10-18] MEDS: FAMOTIDINE 20 MG TABLET PO SCH (08:11)
[2016-10-18] MEDS: DABIGATRAN 150 MG CAPSULE PO SCH ×2 (08:12→20:34)
[2016-10-18] MEDS: NICOTINE 14MG/24 HR PATCH.TD24 TD SCH (08:13)
[2016-10-18] MEDS: INSULIN ASPART 100 UNITS/ML, PEN SQ-INSULIN SCH ×7 (08:15→20:35)
[2016-10-18] MEDS: FLUTICASONE/VILANTEROL 200-25MCG/INH INH SCH (12:32)
[2016-10-18] MEDS: CLOTRIMAZOLE CRM 1%, 15GM TP SCH ×2 (16:40→20:36)
[2016-10-19] MEDS: ALBUTEROL/IPRATROPIUM 2.5MG/0.5MG, 3 ML NPPB SCH ×6 (02:22→23:00)
[2016-10-19 04:00] VITALS: BP 119/54
[2016-10-19 04:28] LABS: ASPARTATE AMINO TRANSFERASE 23 U/L (15-37); BLOOD UREA NITROGEN 26 mg/dL (7-18)
[2016-10-19] MEDS: methylPREDNISolone SOD SUCC 125 MG/2 ML IVPush SCH ×4 (05:24→22:59)
[2016-10-19] MEDS: INSULIN ASPART 100 UNITS/ML, PEN SQ-INSULIN SCH ×5 (08:00→20:44)
[2016-10-19] MEDS: FERROUS SULFATE 325 MG TABLET PO SCH ×2 (09:46→17:54)
[2016-10-19] MEDS: PAROXETINE 20 MG TABLET PO SCH (09:46)
[2016-10-19] MEDS: FUROSEMIDE 20 MG TABLET PO SCH (09:46)
[2016-10-19] MEDS: BUSPIRONE 10 MG TABLET PO SCH ×3 (09:46→20:49)
[2016-10-19] MEDS: FAMOTIDINE 20 MG TABLET PO SCH (09:46)
[2016-10-19] MEDS: POTASSIUM CHLORIDE 20 MEQ PACKET NG SCH ×2 (09:46→20:49)
[2016-10-19] MEDS: TAMSULOSIN 0.4 MG CAP.ER.24H PO SCH (09:46)
[2016-10-19] MEDS: NICOTINE 14MG/24 HR PATCH.TD24 TD SCH (09:49)
[2016-10-19] MEDS: FLUTICASONE/VILANTEROL 200-25MCG/INH INH SCH (09:55)
[2016-10-19] MEDS: DABIGATRAN 150 MG CAPSULE PO SCH ×2 (09:55→20:49)
[2016-10-19] MEDS: CLOTRIMAZOLE CRM 1%, 15GM TP SCH ×2 (12:21→20:49)
[2016-10-19] MEDS ORDERED: DEXTROSE 50%, 50ML VIAL ONE (19:56)
[2016-10-19] MEDS ORDERED: DEXTROSE 50%, 50ML SYRINGE IVPush ONE (20:00)
[2016-10-19] MEDS ORDERED: DEXTROSE 50%, 50ML SYRINGE IVPush PRN (20:30)
[2016-10-19] MEDS ORDERED: DEXTROSE 4 GM TAB.CHEW PO PRN (20:30)
[2016-10-19] MEDS ORDERED: GLUCAGON 1 MG IM PRN (20:30)
[2016-10-19] MEDS: SODIUM CHLORIDE FLUSH 10ML SYR IVF SCH (20:50)
[2016-10-19] MEDS: LORazepam 2 MG/ML, 1ML IVPush PRN (22:59)
[2016-10-20] MEDS: ALBUTEROL/IPRATROPIUM 2.5MG/0.5MG, 3 ML NPPB SCH ×5 (03:00→22:52)
[2016-10-20 04:08] VITALS: BP 111/57
[2016-10-20] MEDS: methylPREDNISolone SOD SUCC 125 MG/2 ML IVPush SCH ×4 (05:15→23:59)
[2016-10-20 06:25] LABS: ASPARTATE AMINO TRANSFERASE 17 U/L (15-37); BLOOD UREA NITROGEN 26 mg/dL (7-18)
[2016-10-20] MEDS: INSULIN ASPART 100 UNITS/ML, PEN SQ-INSULIN SCH ×8 (07:45→19:26)
[2016-10-20] MEDS: POTASSIUM CHLORIDE 20 MEQ PACKET NG SCH ×2 (08:47→19:26)
[2016-10-20] MEDS: FAMOTIDINE 20 MG TABLET PO SCH (08:47)
[2016-10-20] MEDS: FERROUS SULFATE 325 MG TABLET PO SCH ×2 (08:47→16:21)
[2016-10-20] MEDS: BUSPIRONE 10 MG TABLET PO SCH ×3 (08:48→19:26)
[2016-10-20] MEDS: FUROSEMIDE 20 MG TABLET PO SCH (08:48)
[2016-10-20] MEDS: PAROXETINE 20 MG TABLET PO SCH (08:48)
[2016-10-20] MEDS: DABIGATRAN 150 MG CAPSULE PO SCH ×2 (08:48→19:26)
[2016-10-20] MEDS: NICOTINE 14MG/24 HR PATCH.TD24 TD SCH (08:49)
[2016-10-20] MEDS: SODIUM CHLORIDE FLUSH 10ML SYR IVF SCH ×2 (08:49→19:26)
[2016-10-20] MEDS: FLUTICASONE/VILANTEROL 200-25MCG/INH INH SCH (08:49)
[2016-10-20] MEDS: TAMSULOSIN 0.4 MG CAP.ER.24H PO SCH (08:50)
[2016-10-20] MEDS: CLOTRIMAZOLE CRM 1%, 15GM TP SCH ×2 (08:50→21:39)
[2016-10-21] MEDS: ALBUTEROL/IPRATROPIUM 2.5MG/0.5MG, 3 ML NPPB SCH ×6 (02:17→22:00)
[2016-10-21 05:08] VITALS: BP 120/80
[2016-10-21] MEDS: methylPREDNISolone SOD SUCC 125 MG/2 ML IVPush SCH ×4 (05:55→22:10)
[2016-10-21] MEDS: INSULIN ASPART 100 UNITS/ML, PEN SQ-INSULIN SCH ×8 (06:00→20:30)
[2016-10-21] MEDS: CLOTRIMAZOLE CRM 1%, 15GM TP SCH ×2 (09:00→20:26)
[2016-10-21] MEDS: TAMSULOSIN 0.4 MG CAP.ER.24H PO SCH (10:54)
[2016-10-21] MEDS: SODIUM CHLORIDE FLUSH 10ML SYR IVF SCH ×2 (10:54→20:25)
[2016-10-21] MEDS: BUSPIRONE 10 MG TABLET PO SCH ×3 (10:54→20:25)
[2016-10-21] MEDS: POTASSIUM CHLORIDE 20 MEQ PACKET NG SCH ×2 (10:54→20:25)
[2016-10-21] MEDS: FUROSEMIDE 20 MG TABLET PO SCH (10:55)
[2016-10-21] MEDS: FAMOTIDINE 20 MG TABLET PO SCH (10:55)
[2016-10-21] MEDS: PAROXETINE 20 MG TABLET PO SCH (10:55)
[2016-10-21] MEDS: DABIGATRAN 150 MG CAPSULE PO SCH ×2 (10:55→20:25)
[2016-10-21] MEDS: FLUTICASONE/VILANTEROL 200-25MCG/INH INH SCH (10:57)
[2016-10-21] MEDS: NICOTINE 14MG/24 HR PATCH.TD24 TD SCH (10:57)
[2016-10-21] MEDS: FERROUS SULFATE 325 MG TABLET PO SCH ×2 (11:07→17:23)
[2016-10-21] MEDS ORDERED: DIGOXIN 0.25 MG/ML, 2ML IVPush ONE (16:00)
[2016-10-21] MEDS ORDERED: FILTER 0.22 MICRON IV PRN (17:00)
[2016-10-21] MEDS ORDERED: AMIODARONE 150 MG in DEXTROSE 5% 100 ML IV ONE (17:00)
[2016-10-21] MEDS ORDERED: AMIODARONE 900 MG in DEXTROSE 5% 482 ML IV PRN (17:00)
[2016-10-21] MEDS ORDERED: DIGOXIN 0.25 MG/ML, 2ML IVPush SCH (22:00)
[2016-10-22] MEDS: ALBUTEROL/IPRATROPIUM 2.5MG/0.5MG, 3 ML NPPB SCH ×3 (03:00→10:44)
[2016-10-22 04:00] VITALS: BP 118/48
[2016-10-22] MEDS: methylPREDNISolone SOD SUCC 125 MG/2 ML IVPush SCH ×2 (04:43→11:40)
[2016-10-22] MEDS: INSULIN ASPART 100 UNITS/ML, PEN SQ-INSULIN SCH ×4 (07:00→11:00)
[2016-10-22] MEDS: BUSPIRONE 10 MG TABLET PO SCH (08:52)
[2016-10-22] MEDS: FUROSEMIDE 20 MG TABLET PO SCH (08:52)
[2016-10-22] MEDS: PAROXETINE 20 MG TABLET PO SCH (08:52)
[2016-10-22] MEDS: FAMOTIDINE 20 MG TABLET PO SCH (08:52)
[2016-10-22] MEDS: POTASSIUM CHLORIDE 20 MEQ PACKET NG SCH (08:52)
[2016-10-22] MEDS: TAMSULOSIN 0.4 MG CAP.ER.24H PO SCH (08:52)
[2016-10-22] MEDS: DABIGATRAN 150 MG CAPSULE PO SCH (08:52)
[2016-10-22] MEDS: FERROUS SULFATE 325 MG TABLET PO SCH (08:52)
[2016-10-22] MEDS: NICOTINE 14MG/24 HR PATCH.TD24 TD SCH (08:53)
[2016-10-22] MEDS: FLUTICASONE/VILANTEROL 200-25MCG/INH INH SCH (08:54)
[2016-10-22] MEDS: CLOTRIMAZOLE CRM 1%, 15GM TP SCH (08:54)
[2016-10-22] MEDS: SODIUM CHLORIDE FLUSH 10ML SYR IVF SCH (08:54)
[2016-10-22] MEDS ORDERED: SCOPOLAMINE PATCH, 1.5MG PATCH.TD72 TD SCH (13:00)
[2016-10-22] MEDS ORDERED: [UNRECOGNIZED DRUG - REMARK] (13:14)
[2016-10-22] MEDS ORDERED: SCOP1PAT TD (13:21)
== END 2016-10-22 13:50 | disposition hospice, home (50) | DRG 189 ==
LOC: ED 06:37 → EDIP 08:53 → CCU 11:12
PROVIDERS: ADMIT Hospitalist; ATTEND Hospitalist
PROC: 5A09557 Assistance with Respiratory Ventilation, Greater than 96 Consecutive Hours, Continuous Positive Airway Pressure (ICD-10-PCS; principal; 2016-10-17)
DX: J96.21 Acute and chronic respiratory failure with hypoxia (principal); E43 Unspecified severe protein-calorie malnutrition; E87.2 Acidosis; D68.59 Other primary thrombophilia; J44.0 Chronic obstructive pulmonary disease with (acute) lower respiratory infection; J44.1 Chronic obstructive pulmonary disease with (acute) exacerbation; Z99.11 Dependence on respirator [ventilator] status; J96.22 Acute and chronic respiratory failure with hypercapnia; E11.9 Type 2 diabetes mellitus without complications; D64.9 Anemia, unspecified; F17.210 Nicotine dependence, cigarettes, uncomplicated; I25.10 Atherosclerotic heart disease of native coronary artery without angina pectoris; I48.2 Chronic atrial fibrillation; N40.0 Benign prostatic hyperplasia without lower urinary tract symptoms; Z51.5 Encounter for palliative care; Z66 Do not resuscitate; F41.9 Anxiety disorder, unspecified; Z95.5 Presence of coronary angioplasty implant and graft; Z79.899 Other long term (current) drug therapy
CPT/HCPCS: 36415; 36600; 71010; 80048; 80053; 81003; 82803; 82947; 82962; 83605; 83880; 84145; 84484; 85025; 87040; 87081; 93005; 93306; 94640; 94660; 96365; 96375; J1815; J3475; J7613; J7620; J0282; J1160; J2060; J2930; J7040; J7060